=== PATIENT | male | born 1980 | race Caucasian/White ===

== ENCOUNTER → 2016-08-05 | Outpatient (CLI) | payer OTHER ==
--- NOTE | 2016-08-07 18:25 | RADIOLOGY REPORT PS360 ---
MRI-UP EXT OTH THN JNT W/O-RT MRI RIGHT SCAPULA ORDERING PHYSICIAN : Layton Lopez MD PATIENT AGE: 35 years GENDER: Male INDICATION: TENDER MASS MEDIAL SCAPULA Tender reported palpable area medial aspect scapula.. Pain here for years. Pain with 13 scapula or moving shoulder. No palpable mass scattered by technologist. TECHNIQUE: This study focuses on the scapula rather than utilizing standard shoulder imaging technique. Multiplanar multisequence imaging of scapula COMPARISON: . Right shoulder and CT 06/14/2016 right shoulder Also 01/19/2016 MRI. FINDINGS The osseous scapula appears intact with no bone lesion. I see no mass in the muscle along either the anterior nor posterior aspect of scapula. No soft tissue inflammatory changes or findings. No muscle edema or atrophy is might be seen with a denervation or severe neuropathy pattern or [place]arson[place]-Campos's type syndrome.(Brachial plexus neuropathy/neuritis).. If anything, the muscles appear prominent fluid throughout. Particularly noting generous supraspinatus muscle as as well as generous muscles along the anterior and posterior aspect of the scapula The images are designed to evaluate the scapula and although not optimized for the shoulder do provide overview of the shoulder joint. The supraspinatus tendon appears to be intact with no obvious tear nor fluid within the subcutaneous subacromial, subdeltoid bursa. Possible minor tendinopathy/tendinosis of supraspinatus tendon beneath the acromion but this is minimal. Equivocal With upper normal fluid along the biceps tendon sheath related to such. qo I believe the biceps tendon remains intact with no good evidence of high-grade tear. Obvious RCT nor bursitis evident. There is upper normal joint fluid at the anterior shoulder joint space extending towards the subcoracoid recess. What can be seen at the osseous glenoid as well as the anterior & posterior glenoid labrum grossly unremarkable. There does seem to be some mild hypertrophic changes at the AC joint This study includes apex of the right lung and we see no apparent lesion here. The brachial plexus region more medially is not optimally seen but no obvious nor gross lesions are seen here on recent CT survey which included the brachioplexus region. IMPRESSION: -------. No prominent findings or abnormality-- 1. Right scapula osseous elements appears satisfactory 2. Muscles are well-developed generous in size along the anterior posterior aspect the scapula but I see . No focal mass nor lesion. No edema or inflammation. No evidence denervation neuropathy 3. Minor AC joint hypertrophy. 4. Added note: -This study was not designed to evaluate shoulder joint what we do see of the right shoulder right joint reveals no prominent abnormalities.. No evident/obvious rotator cuff tear on the survey images right shoulder joint.. -Would only note slightly generous right shoulder joint fluid which likely accounts for the slight increased fluid along the biceps tendon sheath as well.. . May merely be physiologic fluid is suggested on outside December 2015 MR shoulder. Unimpressive but noted 4.
== END ==
LOC: RAD 12:54
DX: R22.2 Localized swelling, mass and lump, trunk (principal)